=== PATIENT | male | born 1965 ===

== ENCOUNTER 2021-05-16 14:45 | Emergency (ER) | payer SELFPAY ==
[2021-05-16 14:53] VITALS: BP 210/82
--- NOTE | 2021-05-16 15:18 | Event Note ---
Date: 05/16/21 The patient was evaluated in the emergency department for symptoms described in the history of present illness. He/she was evaluated in the context of the global COVID-19 pandemic, which necessitated consideration that the patient might be at risk for infection with the virus that causes COVID-19. Institutional protocols and algorithms that pertain to the evaluation of patients at risk for COVID-19 are in a state of rapid change based on information released by regulatory bodies including the CDC and federal and state organizations. These policies and algorithms were followed during the patient's care in the emergency department. Please note that these policies, procedures and recommendations changed on a rapid basis. EMS documentation not available at time of chart dictation Verbal report received from emergency medical services Medical screening examination note: 55-year-old gentleman, brought to the hospital by emergency medical services after reportedly consuming cocaine and/or marijuana, and reportedly having a convulsive event. EMS reports normal vital signs in the field. The patient is awake, but altered, moving 4 extremities. EMS reports the patient was given Ativan in the field. They report the patient was sleeping initially, but now is becoming more arousable, and somewhat agitated. Obtain appropriate laboratory studies, EKG, noncontrast CT scan of the brain, detailed history and physical examination to be performed by oncoming ER provider Vital Signs 05/16/21 14:52 Temperature 98.8 F Pulse Rate 75 Respiratory 16 Rate Blood Pressure 210/82 [Right] O2 Sat by Pulse 99 Oximetry
--- NOTE | 2021-05-16 16:10 | Cat Scan Report ---
CT head/brain wo con INDICATION: Seizure. TECHNIQUE: Routine CT head. All CT scans at this location are performed using CT dose reduction for A LOGAN by means of automated exposure control. COMPARISON: None. FINDINGS: Intracranial: Baldwin-white matter differentiation is maintained. No intracranial hemorrhage. No extra a xial collection. No hydrocephalus. No herniation. Cystic space in right basal ganglia could be promin ent perivascular space. Sinuses: Paranasal sinuses and mastoid air cells are essentially clear. Orbits: Globes are intact. Calvarium: No acute fracture. IMPRESSION: 1. No acute intracranial abnormality. Signer Name: Lele Marc MD Signed: 05/16/2021 4:06 PM Workstation Name: [id number]
[2021-05-16 16:25] LABS: Hematocrit 45.5 % (35.5-45.6); Hemoglobin 14.6 gm/dl (11.8-15.2); Mean Corpuscular HGB Conc 32 % (32-34); Mean Corpuscular Volume 102 fl (84-94); Platelet Count 299 K/mm3 (140-440); Red Blood Count 4.47 M/mm3 (3.65-5.03); Red Cell Distribution Width 13.2 % (13.2-15.2)
[2021-05-16 16:29] LABS: Basophils % (Auto) 0.3 % (0.0-1.8); Eosinophils % (Auto) 0.2 % (0.0-4.3); Lymphocytes # (Auto) 0.6 K/mm3 (1.2-5.4); Lymphocytes % (Auto) 4.5 % (13.4-35.0); Monocytes # (Auto) 0.2 K/mm3 (0.0-0.8); Monocytes % (Auto) 1.8 % (0.0-7.3)
[2021-05-16 16:49] LABS: BUN/Creatinine Ratio 10; Blood Urea Nitrogen 10 mg/dL (9-20); Hemolysis Index 66
== END 2021-05-16 22:56 | disposition left against medical advice (07) ==
LOC: ED 14:45
DX: R56.9 Unspecified convulsions (principal); F14.10 Cocaine abuse, uncomplicated; F12.10 Cannabis abuse, uncomplicated; Z53.21 Procedure and treatment not carried out due to patient leaving prior to being seen by health care provider
CPT/HCPCS: 36415; 70450; 80048; 80320; 82550; 85025; G0480